=== PATIENT | female | born 1970 | race Two or more races ===

== ENCOUNTER 2019-02-06 16:36 | Emergency (ER) | payer MEDICAID ==
[~2019-02-06] VITALS: Ht 167.6 cm; Wt 82.0 kg
[2019-02-06 17:55] LABS: CLARITY URINE CLEAR (CLEAR); COLOR URINE YELLOW (YELLOW); KETONES URINE NEGATIVE (NEGATIVE); LEUKOCYTE ESTERASE URINE NEGATIVE (NEGATIVE); NITRITE URINE NEGATIVE (NEGATIVE); OCCULT BLOOD URINE NEGATIVE (NEGATIVE); PROTEIN URINE NEGATIVE (NEGATIVE); SPECIFIC GRAVITY URINE 1.011 (1.005-1.030); UROBILINOGEN URINE 0.2 E.U./dL (0.2-1.0)
[2019-02-06 23:36] LABS: BASOPHILS % 0.7 % (0.0-2.0); EOSINOPHILS % 5.7 % (0.0-5.0); HEMATOCRIT. 34.6 % (36.0-48.0); HEMOGLOBIN. 11.9 g/dL (12.0-16.0); LYMPHOCYTES % 52.7 % (20.0-50.0); MEAN CORPUSCULAR HEMOGLOBIN 31.5 pg (28.0-32.0); MEAN CORPUSCULAR VOLUME 91.9 fL (81.0-99.0); MEAN PLATELET VOLUME 8.9 fl (7.4-10.4); MONOCYTES % 7.7 % (2.0-8.0); NEUTROPHILS % 33.2 % (40.0-76.0); PLATELET 307 x1000/uL (130-400); RED BLOOD CELL COUNT 3.77 mill/uL (4.2-5.4)
[2019-02-06 23:57] LABS: CHLORIDE 110 mEq/L (98-107)
[2019-02-07 01:20] VITALS: BP 121/76
== END 2019-02-07 01:34 | disposition home or self-care (01) ==
LOC: ER 16:36
DX: J06.9 Acute upper respiratory infection, unspecified (principal); H91.92 Unspecified hearing loss, left ear; Z98.890 Other specified postprocedural states; R07.89 Other chest pain
CPT/HCPCS: 36415; 71045; 81025; 83880; 84484; 93005; 99284

== ENCOUNTER 2022-10-05 21:25 | Emergency (ER) | payer MEDICAID ==
[~2022-10-05] VITALS: Ht 167.6 cm; Wt 79.0 kg
[2022-10-05 21:29] VITALS: BP 124/77
[2022-10-05] MEDS ORDERED: HYDROCODONE/ACETAMINOPHEN 5/325MG TABLET PO STA (23:08)
[2022-10-05 23:38] LABS: BASOPHILS % 0.7 % (0.0-2.0); EOSINOPHILS % 2.1 % (0.0-5.0); HEMATOCRIT. 34.6 % (36.0-48.0); HEMOGLOBIN. 11.7 g/dL (12.0-16.0); LYMPHOCYTES % 20.3 % (20.0-50.0); MEAN CORPUSCULAR HEMOGLOBIN 31.8 pg (28.0-32.0); MEAN CORPUSCULAR VOLUME 93.9 fL (81.0-99.0); MEAN PLATELET VOLUME 8.7 fl (7.4-10.4); MONOCYTES % 7.2 % (2.0-8.0); NEUTROPHILS % 69.7 % (40.0-76.0); PLATELET 327 x1000/uL (130-400); RED BLOOD CELL COUNT 3.69 mill/uL (4.2-5.4); RED CELL DISTRIBUTION WIDTH 14.7 % (11.6-14.6)
[2022-10-05 23:40] LABS: CHLORIDE 107 mEq/L (98-107)
[2022-10-05] MEDS ORDERED: ACETAMINOPHEN 325MG TABLET PO ONE (23:45)
[2022-10-06] MEDS ORDERED: HYDR-4001 MT (01:07)
[2022-10-06] MEDS ORDERED: ACET-2708 MT (01:07)
[2022-10-06] MEDS ORDERED: LIDO1ADH23 TP (01:07)
[2022-10-06] MEDS ORDERED: IBUPROFEN 400MG TABLET PO ONE (02:45)
== END 2022-10-06 03:42 | disposition home or self-care (01) ==
LOC: ER 21:25
DX: S20.219A Contusion of unspecified front wall of thorax, initial encounter (principal); S60.222A Contusion of left hand, initial encounter; V49.9XXA Car occupant (driver) (passenger) injured in unspecified traffic accident, initial encounter; Y93.89 Activity, other specified; Y92.89 Other specified places as the place of occurrence of the external cause; Y99.8 Other external cause status; Z98.890 Other specified postprocedural states
CPT/HCPCS: 36415; 71046; 73130; 73562; 73590; 80053; 84484; 85025; 93005; 99285